=== PATIENT | female | born 1985 | race Caucasian/White ===

== ENCOUNTER 2019-01-02 10:44 | Emergency (ER) | payer BC ==
[2019-01-02 12:20] VITALS: BP 117/68
--- NOTE | 2019-01-03 09:55 | ED ---
Throat Pain/Nasal Congestion - HPI Summary HPI Summary: Pt. is a 33 y.o female who presents to the ER with concerns of possible allergic reaction. Pt. states she was recently dx with Lyme disease and is on day 14 of doxycycline. Pt. states yesterday she noticed her throat felt tight and she had painful lymph nodes on her neck. Pt. denies rash, itching, mouth, face or tongue swelling, SOB, or difficulty swallowing. Pt. has no hx of allergic rxn. Sxs are mild in severity. No current modifying factors. - History of Current Complaint Chief Complaint: EDAllergicReaction Time Seen by Provider: 01/02/19 11:34 Hx Obtained From: Patient - Allergies/Home Medications Allergies/Adverse Reactions: Allergies Allergy/AdvReac Type Severity Reaction Status Date / Time No Known Allergies Allergy Verified 06/23/14 13:10 Home Medications: Home Medications DOXYcycline CAP(*) [DOXYcycline 100MG CAP(*)] 100 mg PO BID 01/02/19 [History Confirmed 01/02/19] Doxylam/PE/Dm/Acetaminophen/GG [Vicks Dayquil-Nyquil Severe Lq] 10 ml PO BEDTIME PRN 01/02/19 [History Confirmed 01/02/19] Eucalyptus/Menthol [Weaver Cough Drops] 1 sadie PO Q2HR PRN 01/02/19 [History Confirmed 01/02/19] PMH/Surg Hx/FS Hx/Imm Hx Previously Healthy: Yes Infectious Disease History: No Infectious Disease History: Denies: History Other Infectious Disease, Traveled Outside the [place] in Last 30 Days - Family History Known Family History: Positive: Non-Contributory - Social History Occupation: Employed Full-time Lives: With Family Alcohol Use: None Substance Use Type: Reports: None Smoking Status (MU): Never Smoked Tobacco Review of Systems Constitutional: Negative Negative: Fever, Chills Positive: Sore Throat Cardiovascular: Negative Respiratory: Negative Negative: Shortness Of Breath Musculoskeletal: Negative Skin: Negative Negative: Rash Neurological: Negative All Other Systems Reviewed And Are Negative: Yes Physical Exam Triage Information Reviewed: Yes Vital Signs On Initial Exam: Initial Vitals Temp Pulse Resp BP Pulse Ox 98.3 F 76 18 130/80 97 01/02/19 10:45 01/02/19 10:45 01/02/19 10:45 01/02/19 10:45 01/02/19 10:45 Vital Signs Reviewed: Yes Appearance: Positive: Well-Appearing - Pt. sitting in chair in NAD. SO present. Skin: Positive: Warm, Dry Head/Face: Positive: Normal Head/Face Inspection Eyes: Positive: Normal, EOMI Neck: Positive: Supple, Enlarged Nodes @ - small bilateral cerivcal Respiratory/Lung Sounds: Positive: Clear to Auscultation, Breath Sounds Present. Negative: Wheezes Diagnostics - Vital Signs Vital Signs Temp Pulse Resp BP Pulse Ox 01/02/19 12:19 98.2 F 60 16 117/68 97 01/02/19 10:45 98.3 F 76 18 130/80 97 - Laboratory Lab Statement: Any lab studies that have been ordered have been reviewed, and results considered in the medical decision making process. EENT Course/Dx - Course Course Of Treatment: Pt. presenting with concern for concern for allergic rxn. Pt. c/o mild discomfort swallowing. Exam is unremarkable other than small cervical lymphadenopathy. Do not suspect allergic rxn as pt. has no other sxs. Suspect possible viral illness given nodes. Advised to continue doxy as directed. To return to ER if she develops rash, facial/mouth swelling, difficulty swallowing/breathing. pt. understands and agrees with plan. - Differential Diagnoses Differential Diagnoses: Allergic Rhinitis, Pharyngitis, Tonsilitis - Diagnoses Provider Diagnoses: Dysphagia Discharge - Sign-Out/Discharge Documenting (check all that apply): Patient Departure Patient Received Moderate/Deep Sedation with Procedure: No - Discharge Plan Condition: Good Disposition: HOME Patient Education Materials: Pharyngitis (ED) Referrals: Mariana Mei MD [Primary Care Provider] - Additional Instructions: Follow up with PCP in 2-3 days if symptoms persist Increase fluids and rest Tylenol or Motrin for pain as directed Return to ER if symptoms change or worsen - Billing Disposition and Condition Condition: GOOD Disposition: Home
== END 2019-01-02 12:19 | disposition home or self-care (01) ==
LOC: ED 10:44
DX: R13.10 Dysphagia, unspecified (principal)
CPT/HCPCS: 99281